=== PATIENT | male | born 1985 | race Caucasian/White ===

== ENCOUNTER 2018-08-02 06:58 | Emergency (ER) | payer BC, OTHER ==
[~2018-08-02] VITALS: Wt 110.1 kg
[~2018-08-02 06:58] MED LIST: ACET1TAB40 PO
[2018-08-02 07:01] VITALS: BP 140/84; PULSE 85; RESP 20
[2018-08-02] MEDS ORDERED: PRED20TA PO (07:21)
[2018-08-02] MEDS ORDERED: BEN50 PO (07:21)
--- NOTE | 2018-08-02 07:25 | ERD ---
ER Documentation Chief Complaint Chief Complaint Rash and facial swelling. HPI 33-year-old male presents with a itchy rash on his trunk sensation of swelling in his lips and face. Denies any shortness of breath or wheezing. Patient has a history of intermittent hives over the last few months. Seen his primary doct or and had normal labs but has not had allergy testing. Patient denies any new known foods or potential allergens. Denies any seafood, nuts, fruits, additional new changes in diet. Patient took an Justyna at home and symptoms of improved mildly. ROS All systems reviewed and are negative except as per history of present illness. Medications Home Meds Active Scripts Diphenhydramine Hcl* (Benadryl*) 50 Mg Cap, 50 MG PO Q6 PRN for rash, #30 CAP Prov:ANTONIO JOHN MD 08/02/18 Prednisone* (Prednisone*) 20 Mg Tab, 40 MG PO DAILY for 5 Days, TAB Start August 03, 2018 Prov:ANTONIO JOHN MD 08/02/18 Acetaminophen-Codeine* (Acetaminophen-Cod #3*) 300-30 Mg Tab, 1 TAB PO Q4H PRN for PAIN, #10 TAB Prov:DANIELA MARIN PA-C 07/23/15 Allergies Allergies: Coded Allergies: No Known Allergy (Verified , 07/23/15) PMhx/Soc Medical and Surgical Hx: pt denies Medical Hx, pt denies Surgical Hx History of Surgery: No Anesthesia Reaction: No Hx Neurological Disorder: No Hx Respiratory Disorders: No Hx Cardiac Disorders: No Hx Psychiatric Problems: No Hx Miscellaneous Medical Probl: No Hx Alcohol Use: No Hx Substance Use: No Hx Tobacco Use: No Smoking Status: Never smoker FmHx Family History: No diabetes, No coronary disease, No other Physical Exam Vitals Vital Signs Date Temp Pulse Resp B/P (MAP) Pulse Ox O2 O2 Flow FiO2 Time Delivery Rate 08/02/18 97.1 85 20 140/84 98 07:01 (102) Physical Exam Const: No acute distress and speaking complete sentences. Head: Atraumatic Eyes: Normal Conjunctiva ENT: Normal External Ears, Nose and Mouth. He was in oropharynx normal. Neck: Full range of motion. No meningismus. Resp: Clear to auscultation bilaterally Cardio: Regular rate and rhythm, no murmurs Abd: Soft, non tender, non distended. Normal bowel sounds Skin: No petechiae or purpura. No other urticarial lesions merrily in the lower back and trunk. Back: No midline or flank tenderness Ext: No cyanosis, or edema Neur: Awake and alert Psych: Normal Mood and Affect Results 24 hrs Current Medications Medications Dose Sig/Morris Start Time Status Last (Trade) Ordered Route PRN Stop Time Admin Dose Reason Admin 10 mg ONCE ONCE 08/02/18 08/02/18 Dexamethasone IM 07:30 08/02/18 07:19 (Decadron) 07:31 Procedures/MDM Patient presents with signs and symptoms of urticaria without evidence of hypoxemia, respiratory distress, anaphylaxis, cellulitis, sepsis. He was given Decadron 10 mg IM. He will be discharged home with a short course prednisone, continuation of Justyna and Benadryl as needed for severe itching. Was advised on allergy testing for symptoms despite uncertain cause. He should return for shortness of breath, chest pain, fevers, new or worsening symptoms. The patient was stable with no new complaints during the ER course. Clinically, there is no current evidence to suggest meningitis, sepsis, acute abdomen, pneumonia, stroke, acute coronary syndrome, pulmonary embolism, aortic dissection or any other emergent condition appearing to require further evaluation or hospitalization. Patient counseled regarding my diagnostic impression and care plan. Prior to discharge all questions answered. Pt agrees with treatment plan and understands strict return precautions. Pt is instructed to follow up with primary care provider within 24-48 hours. Precautionary instructions provided including instructions to return to the ER if not improving or for any worsening or changing symptoms or concerns. Departure Diagnosis: Primary Impression: Allergic reaction Encounter type: initial encounter Qualified Codes: T78.40XA - Allergy, unspecified, initial encounter Condition: Stable Patient Instructions: Hives Referrals: NO PRIMARY,CARE PHYSICIAN (PCP) Additional Instructions: Okay to continue Justyna during the daytime. Recheck for shortness of breath, fevers, new worsening symptoms. Recommend allergy testing for persistent recurrent symptoms of uncertain cause. ANTONIO JOHN MD Aug 02, 2018 07:25
[2018-08-02] MEDS ORDERED: DEXAMETHASONE 10 MG/ML 1 ML INJ IM ONE (07:30)
== END 2018-08-02 07:38 | disposition home or self-care (01) ==
LOC: FTE 06:58
DX: R21 Rash and other nonspecific skin eruption (principal)
CPT/HCPCS: 96372; J1100; Z7502